=== PATIENT | female | born 1970 | race Hispanic/Latino ===

== ENCOUNTER → 2017-09-29 | Outpatient (CLI) | payer BC | END | disposition home or self-care (01) | LOC: OIH 07:44 → EDUNIT# 08:00 | PROVIDERS: ATTEND Internal Medicine | DX: N23 Unspecified renal colic (principal); K59.00 Constipation, unspecified | CPT/HCPCS: 74176 ==

== ENCOUNTER → 2019-04-24 | Outpatient (CLI) | payer BC | END | disposition home or self-care (01) | LOC: RAH 07:50 | PROVIDERS: ATTEND Internal Medicine | DX: R59.0 Localized enlarged lymph nodes (principal); R16.0 Hepatomegaly, not elsewhere classified; Z90.49 Acquired absence of other specified parts of digestive tract | CPT/HCPCS: 76536; 76705 ==

== ENCOUNTER → 2019-06-27 | Outpatient (CLI) | payer BC | END | disposition home or self-care (01) | LOC: RAH 13:29 | PROVIDERS: ATTEND Internal Medicine | DX: R59.0 Localized enlarged lymph nodes (principal) | CPT/HCPCS: 76882 ==

== ENCOUNTER → 2019-07-06 | Outpatient (CLI) | payer BC | END | disposition home or self-care (01) | LOC: RAH 10:02 | PROVIDERS: ATTEND Internal Medicine | DX: K59.00 Constipation, unspecified (principal); C82.93 Follicular lymphoma, unspecified, intra-abdominal lymph nodes; Z90.49 Acquired absence of other specified parts of digestive tract | CPT/HCPCS: 74150 ==

== ENCOUNTER → 2020-12-25 | Outpatient (CLI) | payer BC | END | disposition home or self-care (01) | LOC: RAH 10:10 | PROVIDERS: ATTEND Internal Medicine Cardiovascular Disease | DX: R06.09 Other forms of dyspnea (principal); R60.0 Localized edema | CPT/HCPCS: 93306; 93356; 93970 ==

== ENCOUNTER → 2022-08-02 | Outpatient (CLI) | payer BC, OTHER ==
[~2022-08-02] MED LIST: IOHEXOL 350 MG/ML 100ML INFUS..BTL IV ONE; IOHEXOL-350 50ML VIAL IV ONE
== END | disposition home or self-care (01) ==
LOC: RAH 09:49
PROVIDERS: ATTEND Internal Medicine Cardiovascular Disease
DX: I73.9 Peripheral vascular disease, unspecified (principal)
CPT/HCPCS: 75635; Q9967 ×2

== ENCOUNTER 2022-08-18 05:56 | Day surgery (SDC) | payer BC ==
[2022-08-16 10:34] LABS: BASOPHILS % (AUTO) 0.6 % (0.0-5.0); EOSINOPHILS % (AUTO) 2.7 % (0.0-8.0); LYMPHOCYTES % (AUTO) 25.8 % (21.0-51.0); MEAN CORPUSCULAR HEMOGLOBIN 20.6 pg (27.0-33.0); MEAN CORPUSCULAR HGB CONC 30.4 g/dL (32.0-36.0); MEAN CORPUSCULAR VOLUME 67.7 fL (79-99); MONOCYTES % (AUTO) 7.2 % (3.0-13.0); NEUTROPHILS % (AUTO) 63.1 % (40.0-77.0); PLATELET COUNT (AUTO) 256 K/uL (130-400); RED BLOOD CELL COUNT(AUTO) 6.65 MIL/uL (4.00-5.50); RED CELL DISTRIBUTION WIDTH 17.9 % (11.0-15.5); WHITE BLOOD COUNT (AUTO) 7.1 K/uL (4.8-10.8)
[2022-08-16 10:42] LABS: POTASSIUM 4.3 mmol/L (3.5-5.1)
[2022-08-16 10:50] LABS: INR 0.93 (0.85-1.15); PROTHROMBIN TIME 10.1 SEC (9.6-11.6)
[2022-08-16 10:51] LABS: PARTIAL THROMBOPLASTIN TIME 27.1 SEC (26.3-35.5)
[2022-08-16 11:15] LABS: APPEARANCE,URINE CLEAR (CLEAR); BILIRUBIN,URINE NEGATIVE (NEGATIVE); COLOR,URINE LIGHT-YELLOW (YELLOW); GLUCOSE, URINE (UA) >=1000 mg/dL (NEGATIVE); KETONES,URINE NEGATIVE (NEGATIVE); LEUKOCYTE ESTERASE ,URINE 75 Leu/uL (NEGATIVE); NITRATE,URINE 2+ (NEGATIVE); OCCULT BLOOD,URINE NEGATIVE (NEGATIVE); PROTEIN,URINE 50 mg/dL (NEGATIVE); UROBILINOGEN,URINE 0.2 mg/dL (0.2-1.0)
[2022-08-16 11:25] LABS: BACTERIA,URINE FEW /HPF (None Seen); MUCUS,URINE RARE LPF (None Seen); SQUAMOUS EPITHELIAL CELL,UR RARE /HPF (0-2)
[2022-08-16 16:47] VITALS: BP 173/84
[~2022-08-18] VITALS: Ht 167.6 cm; Wt 42.6 kg
[2022-08-18] VITALS (9 sets, daily range): BP systolic 107–134; BP diastolic 65–77
[~2022-08-18 05:56] MED LIST changes: +0.9% NACL 500ML IV.SOLN 500 ML IV SCH; +AEC81 PO; +CHLO25TA3 PO; +GABA300C PO; +GLIM4TAB36 PO; -IOHEXOL 350 MG/ML 100ML INFUS..BTL IV ONE; -IOHEXOL-350 50ML VIAL IV ONE; +METF-446 PO; +RIVA2.5T PO
[2022-08-18] MEDS ORDERED: 0.9%NACL 1000ML 1,000 ML IV ONE (06:19)
[2022-08-18] MEDS ORDERED: LIDOCAINE HCL 1% 20 ML VIAL ONE (07:09)
[2022-08-18] MEDS ORDERED: NITROGLYCERIN 50MG VIAL ONE (07:09)
[2022-08-18] MEDS ORDERED: IODIXANOL 320 MG/ML 100 ML VIAL ONE (07:09)
[2022-08-18] MEDS ORDERED: MIDAZOLAM HCL 1 MG/ML 2ML VIAL ONE (07:10)
[2022-08-18] MEDS ORDERED: HEPARIN 10,000 UNIT/10ML (1,000 UNIT/ML) VIAL ONE (07:10)
[2022-08-18] MEDS ORDERED: FENTANYL CITRATE PF 50 MCG/1 ML 2ML VIAL ONE (07:10)
[2022-08-18] MEDS ORDERED: NICARDIPINE 25MG INJ IV ONE (07:44)
[2022-08-18] MEDS ORDERED: NACL 0.9% IV STA (08:05)
[2022-08-18] MEDS ORDERED: BACTRIM IV STA (08:05)
[2022-08-18] MEDS ORDERED: PHARMACY COMMUNICATION MISC SCH (08:30)
[2022-08-18] MEDS ORDERED: CLOPIDOGREL 300MG TAB ONE (08:34)
[2022-08-18] MEDS ORDERED: ONDANSETRON 4MG INJ ONE (10:02)
[2022-08-18] MEDS ORDERED: GLUCAGON 1MG KIT 1 MG ML IM PRN (10:30)
[2022-08-18] MEDS ORDERED: DEXTROSE 50%-WATER 50 ML DISP.SYRIN IV PRN (10:30)
[2022-08-18] MEDS ORDERED: 0.9%NACL 1000ML 1,000 ML IV SCH (10:30)
[2022-08-18] MEDS ORDERED: CLIN-141 PO (15:12)
== END 2022-08-18 13:48 | disposition home or self-care (01) ==
LOC: DAH 05:56
PROVIDERS: ATTEND Internal Medicine Cardiovascular Disease
DX: I70.212 Atherosclerosis of native arteries of extremities with intermittent claudication, left leg (principal); E11.51 Type 2 diabetes mellitus with diabetic peripheral angiopathy without gangrene; L02.214 Cutaneous abscess of groin; I25.10 Atherosclerotic heart disease of native coronary artery without angina pectoris; I10 Essential (primary) hypertension; I87.2 Venous insufficiency (chronic) (peripheral); D50.9 Iron deficiency anemia, unspecified; E78.5 Hyperlipidemia, unspecified; I25.2 Old myocardial infarction; Z79.899 Other long term (current) drug therapy; Z79.01 Long term (current) use of anticoagulants; Z86.16 Personal history of COVID-19; Z79.84 Long term (current) use of oral hypoglycemic drugs; Z79.82 Long term (current) use of aspirin; Z98.890 Other specified postprocedural states; Z90.49 Acquired absence of other specified parts of digestive tract; Z82.49 Family history of ischemic heart disease and other diseases of the circulatory system; Z88.0 Allergy status to penicillin
CPT/HCPCS: 80048; 84703; 85025; 85610; 85730; 87088; 81001; 36415; 93005; 37229; 75716; 37233; 99284; 85347 ×2; 87077; 87186; 82948 ×2; 90714; 90471; 10060; C1894 ×2; C1769 ×3; C1760; C1893; C1887; C1724; C1725 ×2; J3010; J7030; J3490 ×3; J1644 ×2; J2250; J2405; Q9967; J7050; A4215; A4335; A4222; A4221; A4663; A4216; A4606; A4223 ×3; A4554; 75710; 96360; 96361; 99156; 99157

== ENCOUNTER 2022-08-18 14:01 | Emergency (ER) | payer BC ==
[~2022-08-18] VITALS: Ht 167.6 cm; Wt 88.0 kg
[~2022-08-18 14:01] MED LIST changes: -0.9% NACL 500ML IV.SOLN 500 ML IV SCH
[2022-08-18] MEDS ORDERED: CLIN-141 PO (15:12)
[2022-08-18] MEDS ORDERED: BACITRACIN 1 EACH PACKET TP ONE (15:21)
[2022-08-18] MEDS ORDERED: TETANUS/DIPHTHERIA TOXOID [ADULT] 0.5 ML VIAL IM ONE (15:30)
[2022-08-18 15:55] VITALS: BP 145/77
== END 2022-08-18 15:56 | disposition home or self-care (01) ==
LOC: EDH 14:01
DX: L02.214 Cutaneous abscess of groin (principal); I25.10 Atherosclerotic heart disease of native coronary artery without angina pectoris; E11.9 Type 2 diabetes mellitus without complications; I10 Essential (primary) hypertension; Z90.49 Acquired absence of other specified parts of digestive tract; Z98.890 Other specified postprocedural states; Z79.899 Other long term (current) drug therapy; Z79.84 Long term (current) use of oral hypoglycemic drugs; Z79.82 Long term (current) use of aspirin; Z88.0 Allergy status to penicillin
CPT/HCPCS: 10060; 90471; 90714

== ENCOUNTER 2022-09-24 07:34 | Day surgery (SDC) | payer BC ==
[2022-09-21 12:05] LABS: BASOPHILS % (AUTO) 0.5 % (0.0-5.0); EOSINOPHILS % (AUTO) 3.5 % (0.0-8.0); HEMATOCRIT 40.5 % (36-48); LYMPHOCYTES % (AUTO) 24.3 % (21.0-51.0); MEAN CORPUSCULAR HEMOGLOBIN 20.4 pg (27.0-33.0); MEAN CORPUSCULAR HGB CONC 30.9 g/dL (32.0-36.0); MEAN CORPUSCULAR VOLUME 66.1 fL (79-99); MONOCYTES % (AUTO) 6.5 % (3.0-13.0); NEUTROPHILS % (AUTO) 64.7 % (40.0-77.0); PLATELET COUNT (AUTO) 302 K/uL (130-400); RED BLOOD CELL COUNT(AUTO) 6.13 MIL/uL (4.00-5.50); RED CELL DISTRIBUTION WIDTH 17.8 % (11.0-15.5); WHITE BLOOD COUNT (AUTO) 8.3 K/uL (4.8-10.8)
[2022-09-21 12:21] LABS: CREATININE 0.7 mg/dL (0.5-1.5); INR 0.93 (0.85-1.15); POTASSIUM 4.4 mmol/L (3.5-5.1); PROTHROMBIN TIME 9.8 SEC (9.6-11.6)
[2022-09-21 12:22] LABS: PARTIAL THROMBOPLASTIN TIME 28.1 SEC (26.3-35.5)
[2022-09-21 12:23] LABS: B-TYPE NATRIURETIC PEPTIDE 24 pg/mL (0-100)
[2022-09-22 14:45] VITALS: BP 129/80
[~2022-09-24] VITALS: Ht 167.6 cm; Wt 92.8 kg
[2022-09-24] VITALS (11 sets, daily range): BP systolic 128–174; BP diastolic 77–98
[~2022-09-24 07:34] MED LIST changes: +CLOP75TA32 PO; -GABA300C PO; +INSU100V37 SQ; -RIVA2.5T PO; +TIRZ2.5P SQ; +VITAD50000 PO
[2022-09-24] MEDS ORDERED: 0.9%NACL 1000ML 1,000 ML IV ONE (08:31)
[2022-09-24] MEDS ORDERED: NITROGLYCERIN 50MG VIAL ONE (09:15)
[2022-09-24] MEDS ORDERED: HEPARIN 10,000 UNIT/10ML (1,000 UNIT/ML) VIAL ONE (09:15)
[2022-09-24] MEDS ORDERED: NICARDIPINE 25MG INJ IV ONE (09:15)
[2022-09-24] MEDS ORDERED: IODIXANOL 320 MG/ML 100 ML VIAL ONE (09:16)
[2022-09-24] MEDS ORDERED: LIDOCAINE HCL 400MG/20ML VIAL ONE (09:16)
[2022-09-24] MEDS ORDERED: MIDAZOLAM HCL 1 MG/ML 2ML VIAL ONE (09:16)
[2022-09-24] MEDS ORDERED: FENTANYL CITRATE PF 50 MCG/1 ML 2ML VIAL ONE (09:16)
[2022-09-24] MEDS ORDERED: CLOPIDOGREL 300MG TAB ONE (10:16)
[2022-09-24] MEDS ORDERED: IOHEXOL-350 50ML VIAL IV ONE (10:49)
[2022-09-24] MEDS ORDERED: 0.9%NACL 1000ML 1,000 ML IV SCH (11:30)
[2022-09-24] MEDS ORDERED: GLUCAGON 1MG KIT 1 MG ML IM PRN (11:30)
[2022-09-24] MEDS ORDERED: DEXTROSE 50%-WATER 50 ML DISP.SYRIN IV PRN (11:30)
[2022-09-24] MEDS ORDERED: ACETAMINOPHEN 500 MG TABLET ONE (13:02)
[2022-09-24] MEDS ORDERED: ACETAMINOPHEN 500 MG TABLET PO SCH (13:30)
== END 2022-09-24 15:55 | disposition home or self-care (01) ==
LOC: DAH 07:34
PROVIDERS: ATTEND Internal Medicine Cardiovascular Disease
DX: I70.211 Atherosclerosis of native arteries of extremities with intermittent claudication, right leg (principal); I70.92 Chronic total occlusion of artery of the extremities; E11.51 Type 2 diabetes mellitus with diabetic peripheral angiopathy without gangrene; I87.2 Venous insufficiency (chronic) (peripheral); D50.9 Iron deficiency anemia, unspecified; E78.5 Hyperlipidemia, unspecified; Z86.16 Personal history of COVID-19; Z98.890 Other specified postprocedural states; Z90.49 Acquired absence of other specified parts of digestive tract; Z79.82 Long term (current) use of aspirin; Z79.899 Other long term (current) drug therapy; Z82.49 Family history of ischemic heart disease and other diseases of the circulatory system; Z83.3 Family history of diabetes mellitus; Z88.0 Allergy status to penicillin; Z79.01 Long term (current) use of anticoagulants
CPT/HCPCS: 80048; 83880; 84703; 85025; 85610; 85730; 36415; 71045; 93005; 37225; 85347; 82948 ×2; 75716; C1894 ×3; C1760; C1884; C1893; C1887 ×2; C2623; C1769; J3010; J3490 ×3; J7030; J1644 ×3; J2250; Q9967 ×2; A4215; A4222; A4221; A4663; A4216; A4606; A4223 ×3; 99156; 99157

== ENCOUNTER → 2023-10-07 | Outpatient (CLI) | payer BC | END | disposition home or self-care (01) | LOC: RAH 10:37 | PROVIDERS: ATTEND Internal Medicine | DX: L03.116 Cellulitis of left lower limb (principal); Z89.432 Acquired absence of left foot | CPT/HCPCS: 73620 ==

== ENCOUNTER → 2025-06-29 | Outpatient (CLI) | payer BC | END | disposition home or self-care (01) | LOC: RAH 15:22 | PROVIDERS: ATTEND Internal Medicine | DX: Z12.31 Encounter for screening mammogram for malignant neoplasm of breast (principal) | CPT/HCPCS: 77067 ==

== ENCOUNTER → 2025-07-12 | Outpatient (CLI) | payer BC ==
--- NOTE | 2025-07-17 07:06 | HMCIMG ---
EXAMINATION: DUPLEX ULTRASOUND EXAMINATION OF THE RIGHT LOWER EXTREMITY ARTERIES. CLINICAL HISTORY: Peripheral arterial disease. COMPARISON: None. FINDINGS: Peak systolic velocities within the right lower arteries are as follows: Common femoral artery: 153 cm/s. Superficial femoral artery: 113 cm/s at proximal, 104 cm/s at mid, and 123 cm/s at distal segments. Popliteal artery: 61 cm/s at proximal and 70 cm/s at distal segments. Posterior tibial artery: 12 cm/s. Anterior tibial artery: 219 cm/s. Dorsalis pedis artery: 104 cm/s. The right lower limb arteries demonstrate triphasic waveforms in all arteries other than the posterior tibial, anterior tibial, and dorsalis pedis arteries which demonstrate monophasic waveforms. There is intimal wall thickening in the right lower limb arteries. There is increased hyperemic flow in the right anterior tibial artery. IMPRESSION: Mild intimal wall thickening in the right lower limb arteries. The right lower limb arteries demonstrate triphasic waveforms in all arteries other than the posterior tibial, anterior tibial, and dorsalis pedis arteries which demonstrate monophasic waveforms. No flow limiting lesions. Increased hyperemic flow in the right anterior tibial artery. /[place]
== END | disposition home or self-care (01) ==
LOC: RAH 14:08
PROVIDERS: ATTEND Internal Medicine
DX: I73.9 Peripheral vascular disease, unspecified (principal); E13.621 Other specified diabetes mellitus with foot ulcer
CPT/HCPCS: 93926